=== PATIENT | male | born 1995 | race Hispanic/Latino ===

== ENCOUNTER 2024-02-03 19:49 | Inpatient (IN) | payer SELFPAY ==
[~2024-02-03 19:49] MED LIST: Iopamidol-370 76% 500 ML MDV (1 ML CHARGE) ONE
[2024-02-03] MEDS ORDERED: Ondansetron PF 4 MG/2 ML Vial ONE (19:58)
[2024-02-03] MEDS ORDERED: Morphine 4 MG/ML VIAL ONE ×2 (20:09→23:59)
[2024-02-03 20:16] LABS: #Basophils 0.07 10x3/uL (0.0-0.2); #Eosinphils Less than 0.03 10x3/uL (0.0-0.7); %Lymphocytes 20.3 % (21.0-51.0); %Monocytes 4.5 % (0.0-10.0); %Neutrophils 74.1 % (42.0-75.0); Hematocrit 45.4 % (42.0-52.0); Hemoglobin 16.4 g/dL (14.0-18.0); Mean Corpuscular HGB CONC 36.1 g/dL (32.0-36.0); Mean Corpuscular Hemoglobin 30.7 pg (27.0-31.0); Mean Corpuscular Volume 84.9 fL (78.0-98.0); Platelet Count 235 10x3/uL (130-400); RBC Distribution Width 11.9 % (11.5-14.5); Red Blood Cell (RBC) Count 5.35 mill/uL (4.70-6.10)
[2024-02-03 20:32] LABS: ALT (SGPT) 33 U/L (8-55); AST (SGOT) 33 U/L (5-34); Albumin 4.6 g/dL (3.5-5.0); Alkaline Phosphatase 117 U/L (40-110); Anion Gap 20 mmol/L (10-20); BUN (Urea Nitrogen) 13 mg/dL (8.9-20.6); Bilirubin, Total 1.4 mg/dL (0.2-1.2); Calc. Creatinine Clearance 0 mL/min (70-130); Calcium 9.3 mg/dL (7.8-10.44); Carbon Dioxide 23 mmol/L (22-29); Chloride 103 mmol/L (98-107); Estimated GFR 121; Globulin 3.6 g/dL (2.4-3.5); Glucose 160 mg/dL (70-105); Lipase 47 U/L (8-78); Potassium 3.9 mmol/L (3.5-5.1); Protein, Total 8.2 g/dL (6.0-8.3); Sodium 142 mmol/L (136-145)
[2024-02-03 20:34] LABS: Acetaminophen Less than 10 mcg/mL (10.0-30.0); Alcohol 133.6 mg/dL (Less than 10); Salicylate Less than 8.0 mg/dL (15.0-30.0)
[2024-02-03] MEDS ORDERED: Dicyclomine 20 MG/2 ML VIAL ONE (20:44)
[2024-02-03] MEDS ORDERED: Famotidine/PF 20 mg/2ml Vial ONE (20:45)
[2024-02-03] MEDS ORDERED: Acetaminophen 325 MG TAB PO PRN (23:28)
[2024-02-03] MEDS ORDERED: Lorazepam 2 MG/ML VIAL IM PRN (23:28)
[2024-02-03] MEDS ORDERED: Electrolyte Replacement Protocol 1 EACH FS SCH (23:30)
[2024-02-04 00:45] VITALS: BMI 22.1
[2024-02-04] MEDS: Lactated Ringer's 1,000 ML IV SCH (01:14)
[2024-02-04] MEDS: Famotidine/PF 20 mg/2ml Vial SLOW IVP SCH ×2 (01:15→09:34)
[2024-02-04] MEDS: Ondansetron PF 4 MG/2 ML Vial IVP PRN (01:15)
[2024-02-04] MEDS: Thiamine HCl 200 MG/2 ML VIAL SLOW IVP SCH (01:15)
[2024-02-04] MEDS: Lorazepam 1 MG TAB PO SCH (01:16)
[2024-02-04] MEDS: Morphine 2 MG/ML VIAL SLOW IVP PRN (03:57)
[2024-02-04] MEDS: traMADol HCl 50 MG TAB PO PRN (05:27)
[2024-02-04 05:49] LABS: Amphetamine Not Detected (NotDetected); Barbiturates Screen Not Detected (NotDetected); Benzodiazepine Screen Detected (NotDetected); Cocaine Metabolite Screen Detected (NotDetected); Methadone Not Detected (NotDetected); Methamphetamine Not Detected (NotDetected); Opiate Screen Detected (NotDetected); Oxycodone Screen Not Detected (NotDetected); Phencyclidine (PCP) Not Detected (NotDetected); THC/Cannabinoid Screen Not Detected (NotDetected); Tricyclic Screen Not Detected (NotDetected)
[2024-02-04 06:54] LABS: #Basophils 0.04 10x3/uL (0.0-0.2); #Eosinphils Less than 0.03 10x3/uL (0.0-0.7); %Basophils 0.4 % (0.0-1.0); %Eosinophils 0.2 % (0.0-10.0); %Lymphocytes 20.4 % (21.0-51.0); %Monocytes 6.1 % (0.0-10.0); %Neutrophils 72.6 % (42.0-75.0); Hematocrit 39.6 % (42.0-52.0); Hemoglobin 13.8 g/dL (14.0-18.0); Mean Corpuscular HGB CONC 34.8 g/dL (32.0-36.0); Mean Corpuscular Hemoglobin 30.9 pg (27.0-31.0); Mean Corpuscular Volume 88.6 fL (78.0-98.0); Mean Platelet Volume 10.7 fL (7.4-10.4); Platelet Count 166 10x3/uL (130-400); RBC Distribution Width 11.9 % (11.5-14.5); Red Blood Cell (RBC) Count 4.47 mill/uL (4.70-6.10)
[2024-02-04 07:12] LABS: ALT (SGPT) 25 U/L (8-55); AST (SGOT) 29 U/L (5-34); Albumin 3.6 g/dL (3.5-5.0); Alkaline Phosphatase 90 U/L (40-110); Anion Gap 17 mmol/L (10-20); BUN (Urea Nitrogen) 9 mg/dL (8.9-20.6); Bilirubin, Total 1.3 mg/dL (0.2-1.2); Calc. Creatinine Clearance 119 mL/min (70-130); Calcium 8.1 mg/dL (7.8-10.44); Carbon Dioxide 24 mmol/L (22-29); Chloride 103 mmol/L (98-107); Estimated GFR 125; Globulin 2.7 g/dL (2.4-3.5); Glucose 99 mg/dL (70-105); Lipase 84 U/L (8-78); Potassium 3.7 mmol/L (3.5-5.1); Protein, Total 6.3 g/dL (6.0-8.3); Sodium 140 mmol/L (136-145)
[2024-02-04] MEDS: Multivit, Therapeutic 1 TAB PO SCH (09:35)
[2024-02-04] MEDS: Folic Acid 1 MG TAB PO SCH (09:35)
[2024-02-04] MEDS: Lorazepam 1 MG TAB PO PRN (09:36)
[2024-02-04] MEDS ORDERED: Lorazepam 1 MG TAB PO PRN (23:28)
[2024-02-05 06:21] LABS: #Basophils 0.03 10x3/uL (0.0-0.2); %Basophils 0.5 % (0.0-1.0); %Eosinophils 1.1 % (0.0-10.0); %Lymphocytes 32.4 % (21.0-51.0); %Monocytes 5.8 % (0.0-10.0); %Neutrophils 59.9 % (42.0-75.0); Hemoglobin 14.3 g/dL (14.0-18.0); Mean Corpuscular HGB CONC 34.9 g/dL (32.0-36.0); Mean Corpuscular Hemoglobin 30.6 pg (27.0-31.0); Mean Corpuscular Volume 87.6 fL (78.0-98.0); Mean Platelet Volume 10.8 fL (7.4-10.4); Platelet Count 139 10x3/uL (130-400); RBC Distribution Width 11.8 % (11.5-14.5); Red Blood Cell (RBC) Count 4.68 mill/uL (4.70-6.10)
[2024-02-05 06:34] LABS: ALT (SGPT) 20 U/L (8-55); AST (SGOT) 30 U/L (5-34); Albumin 3.2 g/dL (3.5-5.0); Alkaline Phosphatase 113 U/L (40-110); Anion Gap 11 mmol/L (10-20); BUN (Urea Nitrogen) 6 mg/dL (8.9-20.6); Bilirubin, Total 1.7 mg/dL (0.2-1.2); Calc. Creatinine Clearance 133 mL/min (70-130); Calcium 8.5 mg/dL (7.8-10.44); Carbon Dioxide 27 mmol/L (22-29); Chloride 103 mmol/L (98-107); Estimated GFR 129; Globulin 2.7 g/dL (2.4-3.5); Glucose 119 mg/dL (70-105); Lipase 49 U/L (8-78); Magnesium 1.9 mg/dL (1.6-2.6); Phosphorus 2.8 mg/dL (2.3-4.7); Potassium 3.2 mmol/L (3.5-5.1); Protein, Total 5.9 g/dL (6.0-8.3); Sodium 138 mmol/L (136-145)
[2024-02-05 08:15] VITALS: BP 133/89; TEMP 99.5
[2024-02-05] MEDS: Magnesium 2 GM/50 ML(in water) 2 GM in Premix 1 BAG IVPB SCH (09:20)
[2024-02-05] MEDS: Potassium Chloride 20 MEQ TAB PO SCH (09:21)
[2024-02-05] MEDS ORDERED: Lorazepam 1 MG TAB PO PRN (23:28)
[2024-02-05] MEDS ORDERED: Lorazepam 0.5 MG TAB PO SCH (23:30)
[2024-02-06] MEDS ORDERED: Thiamine 100 MG TAB PO SCH (21:00)
[2024-02-06] MEDS ORDERED: Lorazepam 0.5 MG TAB PO PRN (23:28)
== END 2024-02-05 14:30 | disposition home or self-care (01) | DRG 440 ==
LOC: ERS 19:49 → SJJU 23:34
PROVIDERS: ADMIT Internal Medicine; ATTEND Internal Medicine
DX: K85.20 Alcohol induced acute pancreatitis without necrosis or infection (principal); F14.10 Cocaine abuse, uncomplicated; D53.9 Nutritional anemia, unspecified; F10.229 Alcohol dependence with intoxication, unspecified; E87.6 Hypokalemia; Z71.51 Drug abuse counseling and surveillance of drug abuser; Z71.41 Alcohol abuse counseling and surveillance of alcoholic; Y90.6 Blood alcohol level of 120-199 mg/100 ml; R79.89 Other specified abnormal findings of blood chemistry
CPT/HCPCS: 36415; 74177; 80053; 80306; 80307; 83690; 83735; 84100; 85025; 96372; 96374; 96375; 96376; J2272; J2405; J3411; J3475; J3490; J7120; Q9967